=== PATIENT | female | born 1985 | race American Indian/Alaskan Native ===

== ENCOUNTER 2020-11-13 10:56 | Outpatient (CLI) | payer OTHER ==
--- NOTE | 2020-11-13 13:23 | Ultrasound Report ---
Pelvic Ultrasound HISTORY: DUB. TECHNIQUE: Grayscale and color imaging performed. COMPARISON: None FINDINGS: Transabdominal and endovaginal imaging was performed. Uterus measures 10.2 x 3.9 x 5.7 cm with endometrial echo complex measuring 9 mm. Trace amount of flu id is seen near the level of the cervix and there may be tiny nabothian cysts as well. Both ovaries are normal in size with simple bilateral cysts measuring 2.8 cm on the right and 3.3 cm on the left. No pelvic free fluid identified. IMPRESSION: 1. No acute abnormality identified. 2. Simple bilateral ovarian cysts. Signer Name: Ricky Fraser MD Signed: 11/13/2020 1:19 PM Workstation Name: [id number]
== END 2020-11-13 10:57 | disposition home or self-care (01) ==
LOC: US 10:56
PROVIDERS: ATTEND Obstetrics & Gynecology
DX: N83.202 Unspecified ovarian cyst, left side (principal); N83.201 Unspecified ovarian cyst, right side
CPT/HCPCS: 76830; 76856